=== PATIENT | female | born 1990 | race American Indian/Alaskan Native ===

== ENCOUNTER 2016-08-26 20:40 | Emergency (ER) | payer SELFPAY ==
[2016-08-26 22:16] LABS: Hematocrit 37.7 % (30.3-42.9); Hemoglobin 11.6 gm/dl (10.1-14.3); Mean Corpuscular HGB Conc 31 % (30-34); Mean Corpuscular Hemoglobin 27 pg (28-32); Mean Corpuscular Volume 88 fl (79-97); White Blood Count 12.9 K/mm3 (4.5-11.0)
[2016-08-26 22:20] LABS: Platelet Count 211 K/mm3 (140-440)
[2016-08-26 22:22] LABS: INR 0.97 (0.87-1.13)
[2016-08-26 22:23] LABS: Partial Thromboplastin Time 29.6 Sec. (24.2-36.6)
[2016-08-26 22:32] LABS: Blood Urea Nitrogen 14 mg/dL (7-17); Calcium 8.9 mg/dL (8.4-10.2); Carbon Dioxide 19 mmol/L (22-30); Glucose 93 mg/dL (65-100)
[2016-08-26 22:33] LABS: Anion Gap 21 mmol/L; Chloride 101.7 mmol/L (98-107); Potassium 4.5 mmol/L (3.6-5.0); Sodium 137 mmol/L (137-145)
--- NOTE | 2016-08-26 22:55 | Cat Scan Report ---
FINAL REPORT PROCEDURE: CT HEAD/BRAIN WO CON TECHNIQUE: Computerized tomography of the head was performed without contrast material. HISTORY: neuro deficits \T\lt; 6hrs or sx present upon awakening COMPARISON: No prior studies are available for comparison. FINDINGS: Skull and scalp: Normal. Paranasal sinuses: Normal. Ventricles and subarachnoid spaces: Normal. Cerebrum: No evidence of hemorrhage, acute infarction or mass . Cerebellum and brainstem: No evidence of hemorrhage, acute infarction or mass. Vasculature: Normal. Comments: None. IMPRESSION: Normal Examination
[2016-08-27 02:38] VITALS: BP 138/82
== END 2016-08-27 12:34 | disposition left against medical advice (07) ==
LOC: ED 20:40
DX: R51 Headache (principal); R20.0 Anesthesia of skin; M62.81 Muscle weakness (generalized); Z53.21 Procedure and treatment not carried out due to patient leaving prior to being seen by health care provider
CPT/HCPCS: 36415; 70450; 80048; 84484; 85025; 85610; 85670; 85730; 93005; 93010

== ENCOUNTER 2016-08-28 18:31 | Emergency (ER) | payer SELFPAY ==
[2016-08-28 20:10] VITALS: BP 140/78
[2016-08-28] MEDS ORDERED: TORADOL IM ONE ×2 (21:36→23:09)
[2016-08-28] MEDS ORDERED: REGLAN PO ONE (21:36)
[2016-08-28] MEDS ORDERED: DELTASONE PO ONE (21:36)
--- NOTE | 2016-08-28 21:41 | Emergency Department Report ---
ED Headache HPI - General Chief Complaint: Headache Stated Complaint: SEVERE HEAD PAIN Time Seen by Provider: 08/28/16 21:36 Source: patient - History of Present Illness Initial Comments: Patient is a 26-year-old female with a history of the last 2 weeks. She complains of a headache on the left side of her head with some occasional paresthesias. She was here on Friday and left without treatment she did receive a head CT and labs at that time. She complains of mild photophobia but no neck stiffness. She has no fevers chills. She does have some mild paresthesias on the left side of her face. She has tried Motrin without relief. No head trauma. Timing/Duration: other Quality: moderate (2 weeks) Recent Head Trauma: no recent headache/trauma Modifying Factors: improves with: exposure to light. worse with: movement Associated Symptoms: facial pain. denies: confusion, fatigue, fever/chills, flushing, loss of consciousness, nausea/vomiting, seizures, sinus infection, stiff neck, vision changes Allergies/Adverse Reactions: Allergies No Known Allergies Allergy (Verified 08/26/16 21:35) Home Medications: Ambulatory Orders Ibuprofen [Motrin 600 MG tab] 600 mg PO Q8H #30 tablet 08/28/16 methylPREDNISolone [Medrol] 4 mg PO QAM #1 tab.ds.pk 08/28/16 ED Review of Systems ROS: Stated complaint: SEVERE HEAD PAIN Other details as noted in HPI Comment: All other systems reviewed and negative Respiratory: denies: cough, orthopnea Cardiovascular: denies: chest pain, palpitations Endocrine: denies: see HPI, excessive sweating Gastrointestinal: denies: abdominal pain, nausea Musculoskeletal: denies: back pain Skin: denies: rash, lesions Neurological: headache. denies: weakness Psychiatric: denies: anxiety, depression ED Past Medical Hx - Past Medical History Previous Medical History?: No - Surgical History Past Surgical History?: No - Family History Family history: no significant - Social History Smoking Status: Current Some Day Smoker Substance Use Type: Alcohol - Medications Home Medications: Home Medications Medication Instructions Recorded Confirmed Last Taken Type Ibuprofen [Motrin 600 MG tab] 600 mg PO Q8H #30 tablet 08/28/16 Unknown Rx methylPREDNISolone [Medrol] 4 mg PO QAM #1 tab.ds.pk 08/28/16 Unknown Rx ED Physical Exam - General Limitations: No Limitations - Head Head exam: Present: atraumatic, normocephalic - Eye Eye exam: Present: normal appearance, PERRL, EOMI. Absent: scleral icterus, nystagmus, periorbital swelling, periorbital tenderness Pupils: Present: normal accommodation. Absent: unequal, miosis - ENT ENT exam: Present: normal exam, normal orophraynx - Neck Neck exam: Present: normal inspection, tenderness, meningismus - Neurological Exam Neurological exam: Present: alert, oriented X3 - Psychiatric Psychiatric exam: Present: normal affect, normal mood - Skin Skin exam: Present: warm, dry, intact ED Course Vital Signs 08/28/16 08/28/16 20:09 20:24 Temperature 98.3 F 98.3 F Pulse Rate 79 79 Respiratory 18 18 Rate Blood Pressure 140/78 Blood Pressure 140/78 [Right] O2 Sat by Pulse 100 100 Oximetry ED Medical Decision Making - Medical Decision Making Patient is a 26-year-old female here with continued headache the last 2 weeks. She has a normal neurological exam. I suspect this is a prolonged migraine. She has had intermittent headaches from time to time but never been diagnosed with migraines in the past. She had a head CT and labs 2 days ago which were unremarkable. White count is slightly elevated but I do not suspect she is infected. Plan to treat her with IM Toradol prednisone and Reglan and we will likely discharge. Headache improved plan to discharge. Portions of this chart were dictated with dictation software. There may be dictation errors contained within this note. Critical care attestation.: If time is entered above; I have spent that time in minutes in the direct care of this critically ill patient, excluding procedure time. ED Disposition Clinical Impression: Headache Disposition: DC-01 TO HOME OR SELFCARE Is pt being admited?: No Condition: Stable Instructions: Migraine Headache (ED) Prescriptions: Ibuprofen [Motrin 600 MG tab] 600 mg PO Q8H #30 tablet methylPREDNISolone [Medrol] 4 mg PO QAM #1 tab.chase Referrals: PRIMARY CARE, [Primary Care Provider] - 3-5 Days
== END 2016-08-28 23:27 | disposition home or self-care (01) ==
LOC: ED 18:31
DX: R51 Headache (principal); F17.200 Nicotine dependence, unspecified, uncomplicated
CPT/HCPCS: 96372; 99282; J1885; J7512

== ENCOUNTER 2017-12-12 11:39 | Emergency (ER) | payer SELFPAY ==
[2017-12-12 12:00] VITALS: BP 136/74
--- NOTE | 2017-12-12 13:08 | XRay Report ---
LEFT FOOT, 3 views: History: Pain and swelling. An oblique nondisplaced fracture is identified through the proximal phalanx of the third toe. No intra-articular extension. The remaining bony structures are intact. Normal joint spaces. Mild soft tissue swelling of the distal foot is noted. IMPRESSION: Fracture, proximal phalanx, third toe.
== END 2017-12-12 20:14 | disposition left against medical advice (07) ==
LOC: ED 11:39
DX: M79.675 Pain in left toe(s) (principal); Z53.21 Procedure and treatment not carried out due to patient leaving prior to being seen by health care provider

== ENCOUNTER 2017-12-13 08:45 | Emergency (ER) | payer SELFPAY ==
--- NOTE | 2017-12-13 09:59 | Emergency Department Report ---
ED Lower Extremity HPI - General Chief Complaint: Extremity Injury, Lower Stated Complaint: LT FOOT PAIN Time Seen by Provider: 12/13/17 09:35 Source: patient Mode of arrival: Ambulatory Limitations: No Limitations - History of Present Illness Initial Comments: Ms. Juarez is a healthy 27-year-old female without significant past medical history who injured her foot at home 13 days ago on 11/30/2017. She stubbed her toe on the metal portion of her cough at home. severe pain at left 3rd toe with swelling. No improvement with ibuprofen Complaint: foot injury -: week(s) (12 days ago) Injury: Hip: Left, Foot: Left, Toes: Left Type of Injury: blunt Place: home Severity: severe Improves With: nothing Worsens With: weight bearing - Related Data Previous Rx's Medication Instructions Recorded Last Taken Type Ibuprofen [Motrin 600 MG tab] 600 mg PO Q8H #30 tablet 08/28/16 Unknown Rx methylPREDNISolone [Medrol] 4 mg PO QAM #1 tab.ds.pk 08/28/16 Unknown Rx Naproxen [Naprosyn] 500 mg PO BID 5 Days #10 tablet 12/13/17 Unknown Rx Allergies Allergy/AdvReac Type Severity Reaction Status Date / Time No Known Allergies Allergy Verified 12/12/17 12:00 ED Review of Systems ROS: Stated complaint: LT FOOT PAIN Other details as noted in HPI Constitutional: denies: fever, malaise Neurological: denies: numbness, paresthesias ED Past Medical Hx - Past Medical History Previous Medical History?: No - Surgical History Past Surgical History?: No - Social History Smoking Status: Current Every Day Smoker Substance Use Type: None - Medications Home Medications: Home Medications Medication Instructions Recorded Confirmed Last Taken Type Ibuprofen [Motrin 600 MG tab] 600 mg PO Q8H #30 tablet 08/28/16 Unknown Rx methylPREDNISolone [Medrol] 4 mg PO QAM #1 tab.ds.pk 08/28/16 Unknown Rx Naproxen [Naprosyn] 500 mg PO BID 5 Days #10 tablet 12/13/17 Unknown Rx ED Physical Exam - General Limitations: No Limitations General appearance: alert, in no apparent distress - Head Head exam: Present: atraumatic, normocephalic - Neck Neck exam: Present: normal inspection. Absent: tenderness, meningismus - Respiratory Respiratory exam: Absent: respiratory distress - Expanded Lower Extremity Exam Left Foot/Toe exam: Present: tenderness (third digit, third toe mild edema with tenderness 2+ DP ), swelling. Absent: abrasion, laceration, ecchymosis, deformity, crepidus, dislocation, erythema, amputation, puncture wound, foreign body - Neurological Exam Neurological exam: Present: alert, oriented X3 - Skin Skin exam: Present: warm, dry, intact, normal color ED Course Vital Signs 12/13/17 09:01 Temperature 98.8 F Pulse Rate 93 H Respiratory 16 Rate Blood Pressure 132/78 O2 Sat by Pulse 95 Oximetry ED Lower Extremity MDM - Radiology Data Radiology results: report reviewed, image reviewed proximal third left toe - Medical Decision Making left 3rd toe proximal phalanx fracture. I applied kika tape to second and third toes on the left. Prescribed naproxen, hard sole shoes. Critical care attestation.: If time is entered above; I have spent that time in minutes in the direct care of this critically ill patient, excluding procedure time. ED Disposition Clinical Impression: Toe fracture, left Disposition: DC-01 TO HOME OR SELFCARE Is pt being admited?: No Does the pt Need Aspirin: No Condition: Stable Instructions: Toe Fracture (ED) Prescriptions: Naproxen [Naprosyn] 500 mg PO BID 5 Days #10 tablet Referrals: [facility] [Outside] - 3-5 Days
[2017-12-13 10:20] VITALS: BP 120/76
== END 2017-12-13 10:15 | disposition home or self-care (01) ==
LOC: ED 08:45
DX: S92.912A Unspecified fracture of left toe(s), initial encounter for closed fracture (principal); W22.09XA Striking against other stationary object, initial encounter; Y93.89 Activity, other specified; Y92.098 Other place in other non-institutional residence as the place of occurrence of the external cause; Y99.8 Other external cause status; F17.200 Nicotine dependence, unspecified, uncomplicated
CPT/HCPCS: 99282

== ENCOUNTER 2020-01-14 12:44 | Emergency (ER) | payer SELFPAY ==
[2020-01-14 12:52] VITALS: BP 148/79
[2020-01-14] MEDS ORDERED: DIPHtheria,PERTUSSIS(ACELL),TETANUS VACCINE/PF 0.5 ML VIAL IM ONE (13:13)
--- NOTE | 2020-01-14 13:19 | Emergency Department Report ---
ED Animal Bite HPI - General Chief Complaint: Animal Bite Stated Complaint: DOG BITE Time Seen by Provider: 01/14/20 13:12 Source: patient Mode of arrival: Ambulatory Limitations: No Limitations - History of Present Illness Initial Comments: Patient is a 29-year-old female presents emergency room with complaints of a dog bite that occurred around 11 AM today. She states that it was her neighbors dog but she reports belong to the neighbors sister. She states the dog was healthy appearing. The patient states that the police were called and the dog was placed in quarantine. The patient states that she was bit to the right calf. She denies any active bleeding. She is ambulatory without difficulty. She denies any numbness or weakness. Patient denies any past medical history. No allergies to medications. Last menstrual cycle 12/21/2019. She is unsure of her last tetanus immunization. - Related Data Previous Rx's Medication Instructions Recorded Last Taken Type Ibuprofen [Motrin 600 MG tab] 600 mg PO Q8H #30 tablet 08/28/16 Unknown Rx methylPREDNISolone [Medrol] 4 mg PO QAM #1 tab.ds.pk 08/28/16 Unknown Rx Naproxen [Naprosyn] 500 mg PO BID 5 Days #10 tablet 12/13/17 Unknown Rx Amoxicillin/Potassium Clav 1 each PO BID 10 Days #20 tablet 01/14/20 Unknown Rx [Augmentin 875-125 Tablet] Allergies Allergy/AdvReac Type Severity Reaction Status Date / Time No Known Allergies Allergy Verified 01/14/20 12:51 ED Review of Systems ROS: Stated complaint: DOG BITE Other details as noted in HPI Comment: All other systems reviewed and negative ED Past Medical Hx - Past Medical History Previous Medical History?: No - Surgical History Past Surgical History?: No - Social History Smoking Status: Current Some Day Smoker Substance Use Type: Alcohol - Medications Home Medications: Home Medications Medication Instructions Recorded Confirmed Last Taken Type Ibuprofen [Motrin 600 MG tab] 600 mg PO Q8H #30 tablet 08/28/16 Unknown Rx methylPREDNISolone [Medrol] 4 mg PO QAM #1 tab.ds.pk 08/28/16 Unknown Rx Naproxen [Naprosyn] 500 mg PO BID 5 Days #10 tablet 12/13/17 Unknown Rx Amoxicillin/Potassium Clav 1 each PO BID 10 Days #20 tablet 01/14/20 Unknown Rx [Augmentin 875-125 Tablet] ED Physical Exam - General Limitations: No Limitations General appearance: alert, in no apparent distress - Head Head exam: Present: atraumatic, normocephalic - Eye Eye exam: Present: normal appearance - ENT ENT exam: Present: mucous membranes moist - Respiratory Respiratory exam: Absent: respiratory distress, accessory muscle use - Extremities Exam Extremities exam: Present: other (1 cm superificial abrasion to the right calf, no bleeding, no muscle/tendon involvement, FROM of the RLE, no edema, no erythema, no increased warmth, neurovascularly intact) - Neurological Exam Neurological exam: Present: alert, oriented X3 - Psychiatric Psychiatric exam: Present: normal affect, normal mood - Skin Skin exam: Present: warm, dry ED Course Vital Signs 01/14/20 12:50 Temperature 98.7 F Pulse Rate 107 H Respiratory 18 Rate Blood Pressure 148/79 O2 Sat by Pulse 95 Oximetry - Reevaluation(s) Reevaluation #1: 01/14/20 21:23 Patient is a 29-year-old female presents emergency room with complaints of a dog bite that occurred around 11 AM today. She states that it was her neighbors dog but she reports belong to the neighbors sister. She states the dog was healthy appearing. The patient states that the police were called and the dog was pl aced in quarantine. The patient states that she was bit to the right calf. She denies any active bleeding. She is ambulatory without difficulty. She denies any numbness or weakness. Patient denies any past medical history. No allergies to medications. Last menstrual cycle 12/21/2019. She is unsure of her last tetanus immunization. vitals with mild tachycardia, otherwise stable. on exam: 1 cm superificial abrasion to the right calf, no bleeding, no muscle/tendon involvement, FROM of the RLE, no edema, no erythema, no increased warmth, neurovascularly intact. Patient given tetanus immunization while in the emergency department. Wound care performed by signal operator linguist. The dog has already been placed in quarantine, advised patient to follow-up with the appropriate department. Patient given prescription for Augmentin. Advised patient Please take medication as prescribed. Please keep area clean, dry, covered. Wash with antibacterial soap and water twice a day and pat dry. No hot tub or pool. May take Tylenol or ibuprofen as needed for any discomfort. Follow-up with your primary care doctor for reexamination. Please follow-up with the police regarding the dog in quarantine within the next 72 hours. Return to emergency room for any new or worsening symptoms. Critical care attestation.: If time is entered above; I have spent that time in minutes in the direct care of this critically ill patient, excluding procedure time. ED Disposition Clinical Impression: Dog bite of right calf Qualifiers: Encounter type: initial encounter Qualified Code(s): S81.851A - Open bite, right lower leg, initial encounter Disposition: TO HOME OR SELFCARE Is pt being admited?: No Does the pt Need Aspirin: No Condition: Stable Instructions: Wound Care, Adult, Animal Bite, Adult, VIS, Tetanus, Diphtheria, and Pertussis (Tdap) - CDC (05/26/2019) Additional Instructions: Please take medication as prescribed. Please keep area clean, dry, covered. Wash with antibacterial soap and water twice a day and pat dry. No hot tub or pool. May take Tylenol or ibuprofen as needed for any discomfort. Follow-up with your primary care doctor for reexamination. Please follow-up with the police regarding the dog in quarantine within the next 72 hours. Return to emergency room for any new or worsening symptoms. Prescriptions: Amoxicillin/Potassium Clav [Augmentin 875-125 Tablet] 1 each PO BID 10 Days #20 tablet Referrals: VENU HERRERA MD [Staff Physician] - 2-3 Days [facility] [Provider Group] - 2-3 Days [facility] [Outside] - 2-3 Days Time of Disposition: 13:19 Print Language: UZBEK
== END 2020-01-14 13:31 | disposition home or self-care (01) ==
LOC: ED 12:44
DX: S81.851A Open bite, right lower leg, initial encounter (principal); F17.200 Nicotine dependence, unspecified, uncomplicated; Z79.899 Other long term (current) drug therapy; W54.0XXA Bitten by dog, initial encounter; Y93.89 Activity, other specified; Y92.89 Other specified places as the place of occurrence of the external cause; Y99.8 Other external cause status
CPT/HCPCS: 90471; 90715; 99282

== ENCOUNTER 2020-01-14 20:01 | Emergency (ER) | payer SELFPAY ==
--- NOTE | 2020-01-15 00:09 | Emergency Department Report ---
- General Chief complaint: Animal Bite Stated complaint: DOG BITE PAIN/WAS SEEN ERLIER TODAY Time Seen by Provider: 01/15/20 00:03 Source: patient Mode of arrival: Ambulatory Limitations: No Limitations - History of Present Illness Initial comments: The patient was evaluated in the emergency department for symptoms described in the history of present illness. He/she was evaluated in the context of the global COVID-19 pandemic, which necessitated consideration that the patient might be at risk for infection with the virus that causes COVID-19. Institutional protocols and algorithms that pertain to the evaluation of patients at risk for COVID-19 are in a state of rapid change based on information released by regulatory bodies including the CDC and federal and state organizations. These policies and algorithms were followed during the patient's care in the emergency department. Please note that these policies, procedures and recommendations changed on a rapid basis. 29-year-old female was seen here earlier today for dog bite on her right lower leg and states that she is still having pain. Patient reports that she took Tylenol about 5 hours ago x1 dose today. -: This afternoon Tetanus Up to Date: yes Location: RLE Severity: moderate Quality: aching Consistency: constant Improves with: none Worsens with: none Associated symptoms: denies other symptoms Treatments Prior to Arrival: none - Related Data Previous Rx's Medication Instructions Recorded Last Taken Type Ibuprofen [Motrin 600 MG tab] 600 mg PO Q8H #30 tablet 08/28/16 Unknown Rx methylPREDNISolone [Medrol] 4 mg PO QAM #1 tab.ds.pk 08/28/16 Unknown Rx Naproxen [Naprosyn] 500 mg PO BID 5 Days #10 tablet 12/13/17 Unknown Rx Amoxicillin/Potassium Clav 1 each PO BID 10 Days #20 tablet 01/14/20 Unknown Rx [Augmentin 875-125 Tablet] Ibuprofen [Motrin 800 MG tab] 800 mg PO Q8HR PRN #30 tablet 01/15/20 Unknown Rx Allergies Allergy/AdvReac Type Severity Reaction Status Date / Time No Known Allergies Allergy Verified 01/14/20 12:51 Abscess Boil HPI - HPI Chief Complaint: Animal Bite Stated Complaint: DOG BITE PAIN/WAS SEEN ERLIER TODAY Time Seen by Provider: 01/15/20 00:03 Home Medications: Previous Rx's Medication Instructions Recorded Last Taken Type Ibuprofen [Motrin 600 MG tab] 600 mg PO Q8H #30 tablet 08/28/16 Unknown Rx methylPREDNISolone [Medrol] 4 mg PO QAM #1 tab.ds.pk 08/28/16 Unknown Rx Naproxen [Naprosyn] 500 mg PO BID 5 Days #10 tablet 12/13/17 Unknown Rx Amoxicillin/Potassium Clav 1 each PO BID 10 Days #20 tablet 01/14/20 Unknown Rx [Augmentin 875-125 Tablet] Ibuprofen [Motrin 800 MG tab] 800 mg PO Q8HR PRN #30 tablet 01/15/20 Unknown Rx Allergies/Adverse Reactions: Allergies Allergy/AdvReac Type Severity Reaction Status Date / Time No Known Allergies Allergy Verified 01/14/20 12:51 ED Review of Systems ROS: Stated complaint: DOG BITE PAIN/WAS SEEN ERLIER TODAY Other details as noted in HPI Comment: All other systems reviewed and negative ED Past Medical Hx - Past Medical History Previous Medical History?: No - Surgical History Past Surgical History?: No - Social History Smoking Status: Never Smoker Substance Use Type: None - Medications Home Medications: Home Medications Medication Instructions Recorded Confirmed Last Taken Type Ibuprofen [Motrin 600 MG tab] 600 mg PO Q8H #30 tablet 08/28/16 Unknown Rx methylPREDNISolone [Medrol] 4 mg PO QAM #1 tab.ds.pk 08/28/16 Unknown Rx Naproxen [Naprosyn] 500 mg PO BID 5 Days #10 tablet 12/13/17 Unknown Rx Amoxicillin/Potassium Clav 1 each PO BID 10 Days #20 tablet 01/14/20 Unknown Rx [Augmentin 875-125 Tablet] Ibuprofen [Motrin 800 MG tab] 800 mg PO Q8HR PRN #30 tablet 01/15/20 Unknown Rx ED Physical Exam - General Limitations: No Limitations General appearance: alert, in no apparent distress - Head Head exam: Present: atraumatic, normocephalic - Eye Eye exam: Present: normal appearance - ENT ENT exam: Present: mucous membranes moist - Expanded Lower Extremity Exam Right Upper Leg exam: Present: normal inspection Knee exam: Present: normal inspection Lower Leg exam: Present: full ROM, tenderness Ankle exam: Present: normal inspection Foot/Toe exam: Present: normal inspection Neuro vascular tendon exam: Present: no vascular compromise ED Course Vital Signs 01/14/20 21:33 Temperature 98.6 F Pulse Rate 121 H Respiratory 16 Rate Blood Pressure 128/80 O2 Sat by Pulse 96 Oximetry ED Medical Decision Making - Medical Decision Making 29-year-old female was seen here earlier today for dog bite on her right lower leg and states that she is still having pain. Patient reports that she took Tylenol about 5 hours ago x1 dose today. Patient education on pain control. Discussed with patient she needs to take Tylenol every 4-6 hours and ibuprofen every 6-8 hours. Instructed patient to elevate her leg complete her antibiotics and follow-up with a primary care provider. Critical care attestation.: If time is entered above; I have spent that time in minutes in the direct care of this critically ill patient, excluding procedure time. ED Disposition Clinical Impression: Encounter for wound re-check Disposition: TO HOME OR SELFCARE Is pt being admited?: No Does the pt Need Aspirin: No Condition: Stable Instructions: Wound Care, Adult Additional Instructions: Continue with antibiotics as prescribed. Take Tylenol for every 4-6 hours and ibuprofen 800 mg every 6-8 hours. Prescriptions: Ibuprofen [Motrin 800 MG tab] 800 mg PO Q8HR PRN #30 tablet PRN Reason: Pain , Severe (7-10) Referrals: AURY BERRY MD [Primary Care Provider] - 3-5 Days Forms: Work/School Release Form(ED)
[2020-01-15 00:56] VITALS: BP 124/80
== END 2020-01-15 00:53 | disposition home or self-care (01) ==
LOC: ED 20:01
DX: S81.851A Open bite, right lower leg, initial encounter (principal); Z79.899 Other long term (current) drug therapy; Z48.00 Encounter for change or removal of nonsurgical wound dressing; W54.0XXA Bitten by dog, initial encounter; Y93.89 Activity, other specified; Y92.89 Other specified places as the place of occurrence of the external cause; Y99.8 Other external cause status
CPT/HCPCS: 99282

== ENCOUNTER 2021-02-08 09:26 | Emergency (ER) | payer SELFPAY ==
[2021-02-08] MEDS ORDERED: AMOXICILLIN 500 MG CAP PO ONE (09:58)
[2021-02-08] MEDS ORDERED: ACETAMINOPHEN 500 MG TAB PO ONE (09:58)
[2021-02-08] MEDS ORDERED: predniSONE 20 MG TAB PO ONE (09:58)
--- NOTE | 2021-02-08 10:00 | Emergency Department Report ---
Minor Respiratory - HPI Stated Complaint: Severe Head and throat pain Time Seen by Provider: 02/08/21 09:58 Duration: 3 Days Pain Location: Throat Severity: mild Minor Respiratory: Yes Rhinorrhea, Yes Sore Throat, Yes Able to Tolerate Fluids, No Ear Pain, No Cough, No Sick Contacts, No Hemoptysis, No Chest Pain, No Shortness of Breath, No Fever Other History: 30 yo comes to ER with several day hx of sore throat and headache. No fever. Taking PO. Ambulatory to ER. No cough or sob. no chest pain. no known ill contacts ED Review of Systems ROS: Stated complaint: Severe Head and throat pain Other details as noted in HPI Comment: All other systems reviewed and negative ED Past Medical Hx - Past Medical History Previous Medical History?: No - Surgical History Past Surgical History?: No - Family History Family history: no significant - Social History Smoking Status: Never Smoker Substance Use Type: None - Medications Home Medications: Home Medications Medication Instructions Recorded Confirmed Last Taken Type Amoxicillin [Trimox CAP] 500 mg PO BID #20 capsule 02/08/21 Unknown Rx predniSONE [Deltasone] 20 mg PO DAILY #5 tablet 02/08/21 Unknown Rx Minor Respiratory Exam - Exam General: Vital signs noted. No distress. Alert and acting appropriately. HEENT: Yes Pharyngeal Erythema, Yes Pharyngeal Exudates, Yes Moist Mucous Membranes, No Rhinorrhea, No Conjuctival Injection, No Frontal Tenderness, No Maxillary Tenderness Ear: Neither TM Bulge, Neither TM Erythema, Neither EAC Pain, Neither EAC Discharge Neck: Yes Supple, No Adenopathy Lungs: Yes Good Air Exchange, No Wheezes, No Ronchi, No Stridor, No Cough, No Labored Respirations, No Retractions, No Use of Accessory Muscles, No Other Abnormal Lung Sounds Heart: Yes Regular, No Murmur Abdomen: Yes Normal Bowel Sounds, No Tenderness, No Peritoneal Signs Skin: No Rash, No Edema Neurologic: Alert and oriented, no deficits. Musculoskeletal: Unremarkable. ED Medical Decision Making - Medical Decision Making vs normal as manually recorded by RN taking po ambulatory controlling secretions medicated in ER with amox and prednisone dc home with dc plan of care including diet, activity, follow up and meds. She verbalizes understanding of plan of care. - Differential Diagnosis SIMPLE URI- PHARYNGITIS Critical care attestation.: If time is entered above; I have spent that time in minutes in the direct care of this critically ill patient, excluding procedure time. ED Disposition Clinical Impression: Exudative pharyngitis Disposition: HOME / SELF CARE / HOMELESS Is pt being admited?: No Does the pt Need Aspirin: No Condition: Fair Instructions: Viral Respiratory Infection, [id number] Additional Instructions: MEDS ORDERED MOTRIN OR TYLENOL FOR PAIN OR FEVER DIET AND ACTIVITY TOLERATED STAY WELL HYDRATED WITH WATER FOLLOW UP WITH PCP NEXT WEEK IF NEEDED REFERRAL BELOW Prescriptions: predniSONE [Deltasone] 20 mg PO DAILY #5 tablet Amoxicillin [Trimox CAP] 500 mg PO BID #20 capsule Referrals: VENU HERRERA MD [Staff Physician] - 3-5 Days Time of Disposition: 10:00
== END 2021-02-08 11:52 | disposition home or self-care (01) ==
LOC: ED 09:26
DX: J02.9 Acute pharyngitis, unspecified (principal); R51.9 Headache, unspecified
CPT/HCPCS: 99282; J7512